=== PATIENT | male | born 1940 | race African-American/Black ===

== ENCOUNTER 2024-12-07 12:39 | Inpatient (IN) | payer OTHER ==
[~2024-12-07] VITALS: Ht 167.6 cm; Wt 113.9 kg
[2024-12-07 13:10] LABS: PLATELET COUNT (AUTO) 242 K/uL (152-348); RED BLOOD CELL COUNT(AUTO) 4.63 MIL/uL (4.06-5.63); RED CELL DISTRIBUTION WIDTH 16.0 % (12.1-16.2); WHITE BLOOD COUNT (AUTO) 8.2 K/uL (3.6-10.2)
[2024-12-07 13:20] LABS: CREATININE 2.5 mg/dL (0.6-1.3); SODIUM SERUM 143 mmol/L (136-145); UREA NITROGEN, BLOOD 33 mg/dL (7-18)
[2024-12-07] MEDS ORDERED: PROPOFOL 100 ML ONE ×3 (13:30→21:18)
[2024-12-07 13:31] LABS: LACTIC ACID 3.9 mmol/L (0.4-2.0)
[2024-12-07] MEDS: PROPOFOL 1,000 MG/100 ML BOTTLE IV ONE (13:32)
[2024-12-07] MEDS: PROPOFOL 100 ML IV PRN ×2 (13:33→18:21)
[2024-12-07 13:53] LABS: ABG BASE EXCESS -8.2 mmol/L (-2.0-3.0); ABG HCO3 24.6 mmol/L (21.0-28.0); ABG PCO2 90.2 mmHg (35.0-48.0); ABG PH 7.054 (7.350-7.450); ABG PO2 102.5 mmHg (83.0-108.0); ABG TOTAL HEMOGLOBIN 15.2 G/dL (13.5-17.5); AaDO2 94.4 mmHg; FIO2 100.0 %; PEEP,BG 5.0 cmH20; SET RATE, BG 20.0; VT, ABG 450 mL
[2024-12-07 15:22] LABS: ABG BASE EXCESS -5.2 mmol/L (-2.0-3.0); ABG HCO3 22.4 mmol/L (21.0-28.0); ABG PCO2 51.9 mmHg (35.0-48.0); ABG PH 7.253 (7.350-7.450); ABG PO2 195.5 mmHg (83.0-108.0); ABG SITE LEFT RADIAL; ABG TOTAL HEMOGLOBIN 14.2 G/dL (13.5-17.5); AaDO2 99.1 mmHg; FIO2 100.0 %; PEEP,BG 5.0 cmH20; SET RATE, BG 20.0; VT, ABG 450 mL
[2024-12-07] MEDS: IV NORMAL SALINE 1000 ML BAG IV ONE (16:42)
[2024-12-07] MEDS ORDERED: REMEDY ESSENTIAL ZINC PASTE 113 GM TP PRN (17:15)
[2024-12-07] MEDS ORDERED: PIPERACILLIN SODIUM/TAZOBACTAM 3.375 G in IV DEXTROSE 5% 50 ML IV SCH (17:15)
[2024-12-07] MEDS ORDERED: ALBUTEROL SULFATE 2.5 MG/3 ML NEBU ONE ×2 (19:27→23:25)
[2024-12-07] MEDS ORDERED: IPRATROPIUM BROMIDE 0.5 MG/2.5 ML NEBU ONE ×2 (19:28→23:26)
[2024-12-07] MEDS ORDERED: FUROSEMIDE 40 MG/4 ML VIAL IV ONE (19:45)
[2024-12-07] MEDS ORDERED: NOREPINEPHRINE 8MG/NS 250ML 0 ML IV ONE (19:51)
[2024-12-07] MEDS: ENOXAPARIN SODIUM 40 MG/0.4 ML DISP.SYRIN SQ SCH (21:00)
[2024-12-07] MEDS: IPRATROPIUM BROMIDE 0.5 MG/2.5 ML NEBU NEB SCH (21:13)
[2024-12-07] MEDS: ALBUTEROL SULFATE 2.5 MG/3 ML NEBU NEB SCH (21:13)
[2024-12-07] MEDS: PIPERACILLIN SODIUM/TAZOBACTAM 3.375 G in IV DEXTROSE 5% 100 ML IV SCH (22:31)
[2024-12-08] VITALS (53 sets, daily range): BP systolic 98–177; BP diastolic 60–91; TEMP 98–98.7; O2SAT 96–99
[2024-12-08] MEDS: IV LACTATED RINGERS SOLUTION 1,000 ML IV PRN (01:17)
[2024-12-08] MEDS ORDERED: NOREPINEPHRINE 8MG/NS 250ML 250 ML IV PRN (02:00)
[2024-12-08] MEDS ORDERED: PROPOFOL 100 ML ONE ×2 (02:24→08:58)
[2024-12-08] MEDS ORDERED: ALBUTEROL SULFATE 2.5 MG/3 ML NEBU ONE (04:12)
[2024-12-08] MEDS ORDERED: IPRATROPIUM BROMIDE 0.5 MG/2.5 ML NEBU ONE (04:12)
[2024-12-08 05:18] LABS: PLATELET COUNT (AUTO) 174 K/uL (152-348); RED BLOOD CELL COUNT(AUTO) 4.00 MIL/uL (4.06-5.63); RED CELL DISTRIBUTION WIDTH 15.7 % (12.1-16.2); WHITE BLOOD COUNT (AUTO) 8.9 K/uL (3.6-10.2)
[2024-12-08 05:34] LABS: CREATININE 3.3 mg/dL (0.6-1.3); SODIUM SERUM 141 mmol/L (136-145); UREA NITROGEN, BLOOD 41 mg/dL (7-18)
[2024-12-08 06:26] LABS: ABG BASE EXCESS -5.5 mmol/L (-2.0-3.0); ABG HCO3 19.0 mmol/L (21.0-28.0); ABG PCO2 33.9 mmHg (35.0-48.0); ABG PH 7.366 (7.350-7.450); ABG PO2 175.5 mmHg (83.0-108.0); ABG SITE LEFT RADIAL; ABG TOTAL HEMOGLOBIN 13.0 G/dL (13.5-17.5); AaDO2 99.2 mmHg; FIO2 75.0 %; PEEP,BG 5.0 cmH20; SET RATE, BG 24.0; VT, ABG 450 mL
[2024-12-08] MEDS: IPRATROPIUM BROMIDE 0.5 MG/2.5 ML NEBU NEB SCH (08:17)
[2024-12-08] MEDS: ALBUTEROL SULFATE 2.5 MG/3 ML NEBU NEB SCH (08:17)
[2024-12-08] MEDS ORDERED: LIDOCAINE 5% PATCH TD SCH ×2 (09:00)
[2024-12-08] MEDS ORDERED: IV NS 1000 ML 1,000 ML IV PRN (09:00)
[2024-12-08] MEDS ORDERED: SODIUM ZIRCONIUM CYCLOSILICATE 10 GM POWD.PACK NG ONE (10:30)
[2024-12-08] MEDS ORDERED: ALBUTEROL SULFATE 2.5 MG/3 ML NEBU NEB SCH (11:30)
[2024-12-08] MEDS: SODIUM ZIRCONIUM CYCLOSILICATE 10 GM POWD.PACK NG ONE (14:16)
[2024-12-08 14:38] LABS: CREATININE 4.0 mg/dL (0.6-1.3); SODIUM SERUM 136 mmol/L (136-145); UREA NITROGEN, BLOOD 45 mg/dL (7-18)
[2024-12-08 16:46] LABS: PLATELET COUNT (AUTO) 161 K/uL (152-348); RED BLOOD CELL COUNT(AUTO) 3.71 MIL/uL (4.06-5.63); RED CELL DISTRIBUTION WIDTH 15.8 % (12.1-16.2); WHITE BLOOD COUNT (AUTO) 9.4 K/uL (3.6-10.2)
[2024-12-08 16:58] LABS: ASPARTATE AMINOTRANSFERASE 43 U/L (15-37); CREATININE 4.0 mg/dL (0.6-1.3); SODIUM SERUM 140 mmol/L (136-145); TOTAL PROTEIN, SERUM 5.7 g/dL (6.4-8.2); UREA NITROGEN, BLOOD 46 mg/dL (7-18)
[2024-12-08] MEDS: PIPERACILLIN SODIUM/TAZOBACTAM 3.375 G in IV DEXTROSE 5% 100 ML IV SCH (18:10)
[2024-12-08] MEDS: BUDESONIDE 0.5 MG/2 ML NEBU NEB SCH (19:30)
[2024-12-08] MEDS: ENOXAPARIN SODIUM 30 MG/0.3 ML DISP.SYRIN SUBCUT SCH (21:00)
[2024-12-08] MEDS: IV NS 1000 ML 1,000 ML IV PRN (22:00)
[2024-12-08 23:19] LABS: CREATININE 4.2 mg/dL (0.6-1.3); SODIUM SERUM 142 mmol/L (136-145); UREA NITROGEN, BLOOD 47 mg/dL (7-18)
[2024-12-09] VITALS (88 sets, daily range): BP systolic 110–208; BP diastolic 62–105; TEMP 98.1–98.9; O2SAT 91–100
[2024-12-09 05:49] LABS: ABG BASE EXCESS -7.9 mmol/L (-2.0-3.0); ABG HCO3 18.3 mmol/L (21.0-28.0); ABG PCO2 39.5 mmHg (35.0-48.0); ABG PH 7.283 (7.350-7.450); ABG PO2 100.6 mmHg (83.0-108.0); ABG SITE LEFT RADIAL; ABG TOTAL HEMOGLOBIN 12.5 G/dL (13.5-17.5); AaDO2 96.9 mmHg; FIO2 50.0 %; PEEP,BG 5.0 cmH20; SET RATE, BG 20.0; VT, ABG 450 mL
[2024-12-09 06:32] LABS: PLATELET COUNT (AUTO) 141 K/uL (152-348); RED BLOOD CELL COUNT(AUTO) 3.65 MIL/uL (4.06-5.63); RED CELL DISTRIBUTION WIDTH 16.3 % (12.1-16.2); WHITE BLOOD COUNT (AUTO) 8.5 K/uL (3.6-10.2)
[2024-12-09 07:27] LABS: ASPARTATE AMINOTRANSFERASE 33 U/L (15-37); CREATINE KINASE, TOTAL 127 U/L (39-308); CREATININE 3.9 mg/dL (0.6-1.3); SODIUM SERUM 139 mmol/L (136-145); TOTAL PROTEIN, SERUM 5.8 g/dL (6.4-8.2); UREA NITROGEN, BLOOD 46 mg/dL (7-18)
[2024-12-09] MEDS ORDERED: AMLODIPINE 5 MG TABLET PO SCH (09:00)
[2024-12-09] MEDS: SODIUM BICARBONATE 8.4% 100 MEQ in IV D5 1/2 NS 1000 ML 1,000 ML IV SCH (09:29)
[2024-12-09] MEDS: IV LACTATED RINGERS SOLUTION 1,000 ML IV SCH (14:24)
[2024-12-09] MEDS: FENTANYL CITRATE 100 MCG/2 ML AMPUL IV STA (16:17)
[2024-12-09] MEDS: FENTANYL CITRATE/PF 1,000 MCG in IV NORMAL SALINE 80 ML IV PRN (17:20)
[2024-12-09 19:57] LABS: *BILIRUBIN,URIN NEGATIVE (NEGATIVE); *BLOOD, URINE 3+ (NEGATIVE); *CLARITY,URINE CLEAR (CLEAR); *COLOR,URINE YELLOW (YELLOW); *KETONES,URINE NEGATIVE (NEGATIVE); *PROTEIN,URINE 1+ (NEGATIVE); *UROBILINOGEN,URINE 0.2 E.U./dl (NORMAL); LEUKOCYTE ESTERASE ,URINE NEGATIVE (NEGATIVE); NITRITE, URINE NEGATIVE (NEGATIVE); UGLUCOSE NEGATIVE (NEGATIVE)
[2024-12-09 20:05] LABS: *CREATININE,URINE 73.6 mg/dL (30-125); *SODIUM RNDM,URINE 17.0 mmol/L (40-220); *URINE TOTAL PROTEIN RANDOM 40.8 mg/dL (<150/24HR)
[2024-12-09 20:05] LABS: SQUAMOUS EPITHELIAL CELL,UR FEW /HPF (NONE SEEN)
[2024-12-09] MEDS: HEPARIN SODIUM,PORCINE 5,000 UNITS/ML VIAL SQ SCH (21:00)
[2024-12-10] VITALS (67 sets, daily range): BP systolic 109–171; BP diastolic 50–99; TEMP 98.5–99.5; O2SAT 91–100
[2024-12-10 04:51] LABS: PLATELET COUNT (AUTO) 128 K/uL (152-348); RED BLOOD CELL COUNT(AUTO) 3.62 MIL/uL (4.06-5.63); RED CELL DISTRIBUTION WIDTH 15.9 % (12.1-16.2); WHITE BLOOD COUNT (AUTO) 7.7 K/uL (3.6-10.2)
[2024-12-10 05:09] LABS: CREATININE 3.5 mg/dL (0.6-1.3); SODIUM SERUM 146 mmol/L (136-145); UREA NITROGEN, BLOOD 41 mg/dL (7-18)
[2024-12-10 06:02] LABS: ABG BASE EXCESS -2.3 mmol/L (-2.0-3.0); ABG HCO3 23.6 mmol/L (21.0-28.0); ABG PCO2 45.2 mmHg (35.0-48.0); ABG PH 7.336 (7.350-7.450); ABG PO2 99.6 mmHg (83.0-108.0); ABG SITE RIGHT RADIAL; ABG TOTAL HEMOGLOBIN 11.9 G/dL (13.5-17.5); AaDO2 97.1 mmHg; PEEP,BG 5.0 cmH20; SET RATE, BG 20.0; VT, ABG 450 mL
[2024-12-10] MEDS: ACETAMINOPHEN 650 MG SUPP.RECT RC PRN (18:06)
[2024-12-11] VITALS (63 sets, daily range): BP systolic 91–231; BP diastolic 52–127; TEMP 98–99.7; O2SAT 92–99
[2024-12-11 05:21] LABS: CREATININE 3.4 mg/dL (0.6-1.3); SODIUM SERUM 148 mmol/L (136-145); UREA NITROGEN, BLOOD 38 mg/dL (7-18)
[2024-12-11 05:22] LABS: PLATELET COUNT (AUTO) 123 K/uL (152-348); RED BLOOD CELL COUNT(AUTO) 3.33 MIL/uL (4.06-5.63); RED CELL DISTRIBUTION WIDTH 15.6 % (12.1-16.2); WHITE BLOOD COUNT (AUTO) 5.6 K/uL (3.6-10.2)
[2024-12-11 05:58] LABS: ABG BASE EXCESS 2.0 mmol/L (-2.0-3.0); ABG HCO3 28.7 mmol/L (21.0-28.0); ABG PCO2 54.5 mmHg (35.0-48.0); ABG PH 7.340 (7.350-7.450); ABG PO2 80.1 mmHg (83.0-108.0); ABG SITE RIGHT RADIAL; ABG TOTAL HEMOGLOBIN 12.2 G/dL (13.5-17.5); AaDO2 95.0 mmHg; FIO2 45.0 %; PEEP,BG 5.0 cmH20; SET RATE, BG 20.0; VT, ABG 450 mL
[2024-12-11] MEDS: ALBUMIN HUMAN 25% 100 ML IV ONE (14:55)
[2024-12-11] MEDS: IV D5 1/2 NS 1000 ML 1,000 ML IV PRN (19:26)
[2024-12-12] VITALS (44 sets, daily range): BP systolic 117–197; BP diastolic 53–122; TEMP 99.1–99.7; O2SAT 93–97
[2024-12-12 05:13] LABS: PLATELET COUNT (AUTO) 137 K/uL (152-348); RED BLOOD CELL COUNT(AUTO) 3.52 MIL/uL (4.06-5.63); RED CELL DISTRIBUTION WIDTH 15.2 % (12.1-16.2); WHITE BLOOD COUNT (AUTO) 5.9 K/uL (3.6-10.2)
[2024-12-12 05:27] LABS: ASPARTATE AMINOTRANSFERASE 15 U/L (15-37); CREATININE 3.0 mg/dL (0.6-1.3); SODIUM SERUM 148 mmol/L (136-145); TOTAL PROTEIN, SERUM 5.3 g/dL (6.4-8.2); UREA NITROGEN, BLOOD 36 mg/dL (7-18)
[2024-12-12 05:49] LABS: ABG BASE EXCESS 2.8 mmol/L (-2.0-3.0); ABG HCO3 31.2 mmol/L (21.0-28.0); ABG PCO2 66.9 mmHg (35.0-48.0); ABG PH 7.286 (7.350-7.450); ABG PO2 55.7 mmHg (83.0-108.0); ABG SITE LEFT RADIAL; ABG TOTAL HEMOGLOBIN 12.6 G/dL (13.5-17.5); AaDO2 84.4 mmHg; FIO2 40.0 %; PEEP,BG 0.0 cmH20
[2024-12-12 07:06] LABS: PTH, INTACT 55 pg/mL (15-65)
[2024-12-12] MEDS: IV D5W 1000ML 1,000 ML IV SCH (11:26)
[2024-12-12] MEDS: MIRALAX 17 GM POWD.PACK PO SCH (11:30)
[2024-12-12] MEDS: PRECEDEX 400 MCG/100 ML BOTTLE 100 ML IV PRN (13:39)
[2024-12-12] MEDS ORDERED: FENTANYL 50 MCG/ML SYRINGE IV PRN (17:45)
[2024-12-12] MEDS: MAGNESIUM HYDROXIDE 30 ML LIQUID UDC PO PRN (18:46)
[2024-12-12] MEDS: METOPROLOL TARTRATE 5 MG/5 ML VIAL IVP ONE (20:36)
[2024-12-12] MEDS: METOPROLOL TARTRATE 25 MG TABLET PO SCH (21:24)
[2024-12-12] MEDS ORDERED: PROPOFOL 200 MG/20 ML BOTTLE ONE (22:00)
[2024-12-12] MEDS ORDERED: ETOMIDATE 20 MG/10 ML VIAL ONE (22:00)
[2024-12-12] MEDS ORDERED: SUCCINYLCHOLINE CHLORIDE 200 MG/10 ML VIAL ONE (22:00)
[2024-12-12] MEDS: FENTANYL CITRATE 100 MCG/2 ML AMPUL IV PRN (22:23)
[2024-12-13] VITALS (67 sets, daily range): BP systolic 101–246; BP diastolic 57–131; TEMP 97.3–99.2; O2SAT 83–100
[2024-12-13] MEDS: PROPOFOL 100 ML IV PRN (00:54)
[2024-12-13 05:17] LABS: PLATELET COUNT (AUTO) 137 K/uL (152-348); RED BLOOD CELL COUNT(AUTO) 3.41 MIL/uL (4.06-5.63); RED CELL DISTRIBUTION WIDTH 15.4 % (12.1-16.2); WHITE BLOOD COUNT (AUTO) 5.8 K/uL (3.6-10.2)
[2024-12-13 05:32] LABS: CREATININE 2.9 mg/dL (0.6-1.3); SODIUM SERUM 145 mmol/L (136-145); UREA NITROGEN, BLOOD 38 mg/dL (7-18)
[2024-12-13 06:23] LABS: ABG BASE EXCESS 3.9 mmol/L (-2.0-3.0); ABG HCO3 29.1 mmol/L (21.0-28.0); ABG PCO2 46.4 mmHg (35.0-48.0); ABG PH 7.415 (7.350-7.450); ABG PO2 70.1 mmHg (83.0-108.0); ABG SITE RIGHT RADIAL; ABG TOTAL HEMOGLOBIN 12.0 G/dL (13.5-17.5); AaDO2 94.2 mmHg; FIO2 40.0 %; PEEP,BG 5.0 cmH20; SET RATE, BG 20.0; VT, ABG 450 mL
[2024-12-13 10:32] LABS: ABG BASE EXCESS 2.4 mmol/L (-2.0-3.0); ABG HCO3 33.9 mmol/L (21.0-28.0); ABG PCO2 93.9 mmHg (35.0-48.0); ABG PH 7.176 (7.350-7.450); ABG PO2 56.5 mmHg (83.0-108.0); ABG SITE LEFT RADIAL; ABG TOTAL HEMOGLOBIN 14.0 G/dL (13.5-17.5); AaDO2 79.8 mmHg; FIO2 40.0 %; PEEP,BG 0.0 cmH20
[2024-12-13] MEDS: NEPRO 1000 ML NG PRN (17:12)
[2024-12-14] VITALS (74 sets, daily range): BP systolic 111–237; BP diastolic 51–136; TEMP 97.5–99.5; O2SAT 91–100
[2024-12-14 05:45] LABS: PLATELET COUNT (AUTO) 149 K/uL (152-348); RED BLOOD CELL COUNT(AUTO) 3.47 MIL/uL (4.06-5.63); RED CELL DISTRIBUTION WIDTH 15.1 % (12.1-16.2); WHITE BLOOD COUNT (AUTO) 6.5 K/uL (3.6-10.2)
[2024-12-14 05:55] LABS: CREATININE 2.9 mg/dL (0.6-1.3); SODIUM SERUM 140 mmol/L (136-145); UREA NITROGEN, BLOOD 45 mg/dL (7-18)
[2024-12-14 06:43] LABS: ABG BASE EXCESS 2.6 mmol/L (-2.0-3.0); ABG HCO3 31.1 mmol/L (21.0-28.0); ABG PCO2 66.9 mmHg (35.0-48.0); ABG PH 7.285 (7.350-7.450); ABG PO2 71.6 mmHg (83.0-108.0); ABG SITE RIGHT RADIAL; ABG TOTAL HEMOGLOBIN 13.4 G/dL (13.5-17.5); AaDO2 92.0 mmHg; FIO2 30.0 %; PEEP,BG 3.0 cmH20
[2024-12-14 08:59] LABS: ASPARTATE AMINOTRANSFERASE 20.0 U/L (15-37); TOTAL PROTEIN, SERUM 5.5 g/dL (6.4-8.2)
[2024-12-15] VITALS (48 sets, daily range): BP systolic 94–244; BP diastolic 53–111; TEMP 97.7–103.3; O2SAT 88–100
[2024-12-15 05:23] LABS: PLATELET COUNT (AUTO) 173 K/uL (152-348); RED BLOOD CELL COUNT(AUTO) 3.30 MIL/uL (4.06-5.63); RED CELL DISTRIBUTION WIDTH 14.9 % (12.1-16.2); WHITE BLOOD COUNT (AUTO) 7.9 K/uL (3.6-10.2)
[2024-12-15 05:26] LABS: CREATININE 3.1 mg/dL (0.6-1.3); SODIUM SERUM 138 mmol/L (136-145); UREA NITROGEN, BLOOD 50 mg/dL (7-18)
[2024-12-15 06:03] LABS: ABG BASE EXCESS 2.1 mmol/L (-2.0-3.0); ABG HCO3 30.7 mmol/L (21.0-28.0); ABG PCO2 67.4 mmHg (35.0-48.0); ABG PH 7.276 (7.350-7.450); ABG PO2 55.2 mmHg (83.0-108.0); ABG SITE LEFT RADIAL; ABG TOTAL HEMOGLOBIN 13.0 G/dL (13.5-17.5); AaDO2 83.7 mmHg; FIO2 30.0 %; PEEP,BG 3.0 cmH20
[2024-12-16] VITALS (33 sets, daily range): BP systolic 138–225; BP diastolic 68–125; TEMP 98.4–99.6; O2SAT 89–100
[2024-12-16 05:18] LABS: PLATELET COUNT (AUTO) 214 K/uL (152-348); RED BLOOD CELL COUNT(AUTO) 3.71 MIL/uL (4.06-5.63); RED CELL DISTRIBUTION WIDTH 14.7 % (12.1-16.2); WHITE BLOOD COUNT (AUTO) 8.7 K/uL (3.6-10.2)
[2024-12-16 05:29] LABS: CREATININE 3.0 mg/dL (0.6-1.3); SODIUM SERUM 137 mmol/L (136-145); UREA NITROGEN, BLOOD 57 mg/dL (7-18)
[2024-12-16 09:36] LABS: ABG BASE EXCESS 1.1 mmol/L (-2.0-3.0); ABG HCO3 29.8 mmol/L (21.0-28.0); ABG PCO2 67.1 mmHg (35.0-48.0); ABG PH 7.266 (7.350-7.450); ABG PO2 42.6 mmHg (83.0-108.0); ABG SITE LEFT RADIAL; ABG TOTAL HEMOGLOBIN 14.0 G/dL (13.5-17.5); AaDO2 70.0 mmHg; FIO2 30.0 %; PEEP,BG 3.0 cmH20
[2024-12-16] MEDS: ACETAMINOPHEN 325 MG TABLET PO PRN (16:06)
[2024-12-17] VITALS (55 sets, daily range): BP systolic 68–208; BP diastolic 42–141; TEMP 97.2–99; O2SAT 88–99
[2024-12-17 10:34] LABS: ABG BASE EXCESS -2.4 mmol/L (-2.0-3.0); ABG HCO3 29.0 mmol/L (21.0-28.0); ABG PCO2 85.8 mmHg (35.0-48.0); ABG PH 7.147 (7.350-7.450); ABG PO2 58.8 mmHg (83.0-108.0); ABG SITE LEFT RADIAL; ABG TOTAL HEMOGLOBIN 14.8 G/dL (13.5-17.5); AaDO2 80.8 mmHg; FIO2 35.0 %; PEEP,BG 0.0 cmH20
[2024-12-17] MEDS: IV D5 1/2 NS 1000 ML 1,000 ML IV PRN (14:00)
[2024-12-17 14:33] LABS: PLATELET COUNT (AUTO) 258 K/uL (152-348); RED BLOOD CELL COUNT(AUTO) 3.37 MIL/uL (4.06-5.63); RED CELL DISTRIBUTION WIDTH 14.5 % (12.1-16.2); WHITE BLOOD COUNT (AUTO) 7.9 K/uL (3.6-10.2)
[2024-12-17 14:45] LABS: ASPARTATE AMINOTRANSFERASE 52 U/L (15-37); CREATININE 3.0 mg/dL (0.6-1.3); SODIUM SERUM 138 mmol/L (136-145); TOTAL PROTEIN, SERUM 5.5 g/dL (6.4-8.2); UREA NITROGEN, BLOOD 76 mg/dL (7-18)
[2024-12-17] MEDS ORDERED: NOREPINEPHRINE 8MG/NS 250ML 250 ML IV PRN (15:45)
[2024-12-17] MEDS: PRECEDEX 400 MCG/100 ML BOTTLE 100 ML IV PRN (16:07)
[2024-12-17 16:54] LABS: *BILIRUBIN,URIN NEGATIVE (NEGATIVE); *BLOOD, URINE 3+ (NEGATIVE); *COLOR,URINE YELLOW (YELLOW); *KETONES,URINE NEGATIVE (NEGATIVE); *PROTEIN,URINE 1+ (NEGATIVE); *UROBILINOGEN,URINE 0.2 E.U./dl (NORMAL); LEUKOCYTE ESTERASE ,URINE NEGATIVE (NEGATIVE); NITRITE, URINE NEGATIVE (NEGATIVE); UGLUCOSE NEGATIVE (NEGATIVE)
[2024-12-17 16:57] LABS: *CLARITY,URINE HAZY (CLEAR)
[2024-12-17 17:17] LABS: SQUAMOUS EPITHELIAL CELL,UR FEW /HPF (NONE SEEN); URINE AMORPHOUS URATE MODERATE /HPF
[2024-12-18] VITALS (73 sets, daily range): BP systolic 110–255; BP diastolic 56–161; TEMP 97.2–98.1; O2SAT 88–100
[2024-12-18 05:29] LABS: PLATELET COUNT (AUTO) 321 K/uL (152-348); RED BLOOD CELL COUNT(AUTO) 3.61 MIL/uL (4.06-5.63); RED CELL DISTRIBUTION WIDTH 14.7 % (12.1-16.2); WHITE BLOOD COUNT (AUTO) 8.8 K/uL (3.6-10.2)
[2024-12-18 05:41] LABS: ASPARTATE AMINOTRANSFERASE 24 U/L (15-37); CREATININE 3.0 mg/dL (0.6-1.3); SODIUM SERUM 136 mmol/L (136-145); TOTAL PROTEIN, SERUM 6.0 g/dL (6.4-8.2)
[2024-12-18 05:43] LABS: UREA NITROGEN, BLOOD 86 mg/dL (7-18)
[2024-12-18 10:37] LABS: ABG BASE EXCESS 0.1 mmol/L (-2.0-3.0); ABG HCO3 26.4 mmol/L (21.0-28.0); ABG PCO2 49.7 mmHg (35.0-48.0); ABG PH 7.343 (7.350-7.450); ABG PO2 76.8 mmHg (83.0-108.0); ABG TOTAL HEMOGLOBIN 12.5 G/dL (13.5-17.5); AaDO2 94.5 mmHg; FIO2 35.0 %; PEEP,BG 3.0 cmH20
[2024-12-18] MEDS: METOPROLOL TARTRATE 5 MG/5 ML VIAL IVP PRN (11:55)
[2024-12-18] MEDS ORDERED: PIPERACILLIN SODIUM/TAZOBACTAM 3.375 G in IV DEXTROSE 5% 50 ML IV SCH (12:45)
[2024-12-18 12:49] LABS: ABG BASE EXCESS -3.6 mmol/L (-2.0-3.0); ABG HCO3 30.2 mmol/L (21.0-28.0); ABG PCO2 112.2 mmHg (35.0-48.0); ABG PH 7.048 (7.350-7.450); ABG PO2 109.4 mmHg (83.0-108.0); ABG SITE LEFT RADIAL; ABG TOTAL HEMOGLOBIN 14.4 G/dL (13.5-17.5); AaDO2 95.1 mmHg; FIO2 52.0 %
[2024-12-18] MEDS: PRECEDEX 400 MCG/100 ML BOTTLE 100 ML IV PRN (12:52)
[2024-12-18] MEDS: PIPERACILLIN SODIUM/TAZOBACTAM 3.375 G in IV DEXTROSE 5% 100 ML IV SCH (13:10)
[2024-12-18] MEDS ORDERED: PROPOFOL 200 MG/20 ML BOTTLE ONE (14:00)
[2024-12-18 15:25] LABS: ABG BASE EXCESS -0.8 mmol/L (-2.0-3.0); ABG HCO3 25.3 mmol/L (21.0-28.0); ABG PCO2 47.9 mmHg (35.0-48.0); ABG PH 7.341 (7.350-7.450); ABG PO2 75.5 mmHg (83.0-108.0); ABG SITE LEFT RADIAL; ABG TOTAL HEMOGLOBIN 11.9 G/dL (13.5-17.5); AaDO2 94.3 mmHg; FIO2 60.0 %; PEEP,BG 5.0 cmH20; SET RATE, BG 20.0; VT, ABG 450 mL
[2024-12-19] VITALS (48 sets, daily range): BP systolic 132–196; BP diastolic 57–144; TEMP 97.7–98.7; O2SAT 93–100
[2024-12-19 08:42] LABS: ABG BASE EXCESS 0.2 mmol/L (-2.0-3.0); ABG HCO3 25.7 mmol/L (21.0-28.0); ABG PCO2 44.6 mmHg (35.0-48.0); ABG PH 7.379 (7.350-7.450); ABG PO2 77.7 mmHg (83.0-108.0); ABG SITE LEFT RADIAL; ABG TOTAL HEMOGLOBIN 18.8 G/dL (13.5-17.5); AaDO2 95.2 mmHg; FIO2 40.0 %; PEEP,BG 5.0 cmH20; SET RATE, BG 20.0; VT, ABG 450 mL
[2024-12-19 08:43] LABS: PLATELET COUNT (AUTO) 327 K/uL (152-348); RED BLOOD CELL COUNT(AUTO) 3.52 MIL/uL (4.06-5.63); RED CELL DISTRIBUTION WIDTH 14.6 % (12.1-16.2); WHITE BLOOD COUNT (AUTO) 9.9 K/uL (3.6-10.2)
[2024-12-19 09:02] LABS: ASPARTATE AMINOTRANSFERASE 20 U/L (15-37); CREATININE 2.9 mg/dL (0.6-1.3); SODIUM SERUM 140 mmol/L (136-145); TOTAL PROTEIN, SERUM 6.0 g/dL (6.4-8.2)
[2024-12-19 09:07] LABS: UREA NITROGEN, BLOOD 103 mg/dL (7-18)
[2024-12-20] VITALS (42 sets, daily range): BP systolic 129–229; BP diastolic 34–194; TEMP 97.7–98.9; O2SAT 94–100
[2024-12-20 05:07] LABS: PLATELET COUNT (AUTO) 328 K/uL (152-348); RED BLOOD CELL COUNT(AUTO) 3.47 MIL/uL (4.06-5.63); RED CELL DISTRIBUTION WIDTH 14.2 % (12.1-16.2); WHITE BLOOD COUNT (AUTO) 9.5 K/uL (3.6-10.2)
[2024-12-20 06:15] LABS: CREATININE 2.7 mg/dL (0.6-1.3); SODIUM SERUM 141 mmol/L (136-145)
[2024-12-20 06:18] LABS: UREA NITROGEN, BLOOD 100 mg/dL (7-18)
[2024-12-20 06:32] LABS: ABG BASE EXCESS 0.2 mmol/L (-2.0-3.0); ABG HCO3 25.0 mmol/L (21.0-28.0); ABG PCO2 41.2 mmHg (35.0-48.0); ABG PH 7.401 (7.350-7.450); ABG PO2 84.8 mmHg (83.0-108.0); ABG SITE LEFT RADIAL; ABG TOTAL HEMOGLOBIN 12.1 G/dL (13.5-17.5); AaDO2 96.4 mmHg; FIO2 40.0 %; PEEP,BG 5.0 cmH20; SET RATE, BG 20.0; VT, ABG 450 mL
[2024-12-20] MEDS: OLANZAPINE 10 MG VIAL IM ONE (12:02)
[2024-12-20] MEDS: FENTANYL CITRATE 100 MCG/2 ML AMPUL IV ONE (13:31)
[2024-12-20] MEDS: VECURONIUM BROMIDE 10 MG VIAL IV ONE (13:32)
[2024-12-20] MEDS: MIDAZOLAM HCL 2 MG/2 ML VIAL IV ONE (14:05)
[2024-12-20] MEDS: LABETALOL HCL 100 MG/20 ML VIAL IV ONE (15:23)
[2024-12-20] MEDS ORDERED: BISACODYL 10 MG SUPP.RECT RC ONE (19:45)
[2024-12-20] MEDS: BISACODYL 10 MG SUPP.RECT RC ONE (22:06)
[2024-12-21] VITALS (41 sets, daily range): BP systolic 123–205; BP diastolic 53–120; TEMP 96.8–98.2; O2SAT 95–99
[2024-12-21 05:08] LABS: PLATELET COUNT (AUTO) 368 K/uL (152-348); RED BLOOD CELL COUNT(AUTO) 3.86 MIL/uL (4.06-5.63); RED CELL DISTRIBUTION WIDTH 14.5 % (12.1-16.2); WHITE BLOOD COUNT (AUTO) 12.0 K/uL (3.6-10.2)
[2024-12-21 05:31] LABS: CREATININE 2.6 mg/dL (0.6-1.3); SODIUM SERUM 144 mmol/L (136-145)
[2024-12-21 05:33] LABS: UREA NITROGEN, BLOOD 99 mg/dL (7-18)
[2024-12-21 05:45] LABS: ABG BASE EXCESS -1.0 mmol/L (-2.0-3.0); ABG HCO3 23.9 mmol/L (21.0-28.0); ABG PCO2 41.0 mmHg (35.0-48.0); ABG PH 7.384 (7.350-7.450); ABG PO2 83.0 mmHg (83.0-108.0); ABG SITE LEFT RADIAL; ABG TOTAL HEMOGLOBIN 8.1 G/dL (13.5-17.5); AaDO2 96.1 mmHg; FIO2 40.0 %; PEEP,BG 5.0 cmH20; SET RATE, BG 20.0; VT, ABG 450 mL
[2024-12-21] MEDS: LABETALOL HCL 100 MG/20 ML VIAL IV PRN (13:04)
[2024-12-21] MEDS ORDERED: PROPOFOL 200 MG/20 ML BOTTLE ONE (18:38)
[2024-12-21] MEDS ORDERED: LIDOCAINE-MPF 2% 5 ML VIAL ONE (18:38)
[2024-12-21] MEDS ORDERED: ETOMIDATE 20 MG/10 ML VIAL ONE (18:38)
[2024-12-22] VITALS (29 sets, daily range): BP systolic 130–196; BP diastolic 52–150; TEMP 96.7–99; O2SAT 95–100
[2024-12-22 05:06] LABS: PLATELET COUNT (AUTO) 356 K/uL (152-348); RED BLOOD CELL COUNT(AUTO) 3.59 MIL/uL (4.06-5.63); RED CELL DISTRIBUTION WIDTH 14.6 % (12.1-16.2); WHITE BLOOD COUNT (AUTO) 11.9 K/uL (3.6-10.2)
[2024-12-22 05:20] LABS: CREATININE 2.2 mg/dL (0.6-1.3); SODIUM SERUM 145 mmol/L (136-145)
[2024-12-22 05:25] LABS: UREA NITROGEN, BLOOD 91 mg/dL (7-18)
[2024-12-22] MEDS: QUETIAPINE FUMARATE 25 MG TABLET GT SCH (07:35)
[2024-12-22] MEDS: LABETALOL HCL 100 MG TABLET GT SCH (09:44)
[2024-12-22] MEDS: PIPERACILLIN SODIUM/TAZOBACTAM 3.375 G in IV DEXTROSE 5% 100 ML IV SCH (09:44)
[2024-12-22 10:11] LABS: A/G RATIO 1.1 (0.7-1.7); BETA GLOBULIN 1.0 g/dL (0.7-1.3); GLOBULIN, TOTAL 2.6 g/dL (2.2-3.9); M-SPIKE Not Observed g/dL (Not Observed); PROTEIN, TOTAL 5.4 g/dL (6.0-8.5)
[2024-12-22 11:29] LABS: ABG BASE EXCESS -1.1 mmol/L (-2.0-3.0); ABG HCO3 21.7 mmol/L (21.0-28.0); ABG PCO2 30.7 mmHg (35.0-48.0); ABG PH 7.468 (7.350-7.450); ABG PO2 98.7 mmHg (83.0-108.0); ABG SITE LEFT RADIAL; ABG TOTAL HEMOGLOBIN 12.4 G/dL (13.5-17.5); AaDO2 97.9 mmHg; FIO2 40.0 %; PEEP,BG 5.0 cmH20; SET RATE, BG 20.0; VT, ABG 450 mL
[2024-12-22] MEDS: BUDESONIDE 0.5 MG/2 ML NEBU NEB SCH (20:10)
[2024-12-23] VITALS (43 sets, daily range): BP systolic 122–239; BP diastolic 60–159; TEMP 97.1–99.5; O2SAT 91–100
[2024-12-23 05:05] LABS: PLATELET COUNT (AUTO) 376 K/uL (152-348); RED BLOOD CELL COUNT(AUTO) 3.35 MIL/uL (4.06-5.63); RED CELL DISTRIBUTION WIDTH 14.8 % (12.1-16.2); WHITE BLOOD COUNT (AUTO) 9.0 K/uL (3.6-10.2)
[2024-12-23 05:20] LABS: ASPARTATE AMINOTRANSFERASE 17 U/L (15-37); CREATININE 2.4 mg/dL (0.6-1.3); SODIUM SERUM 144 mmol/L (136-145); TOTAL PROTEIN, SERUM 5.8 g/dL (6.4-8.2)
[2024-12-23 05:24] LABS: UREA NITROGEN, BLOOD 89 mg/dL (7-18)
[2024-12-23 05:35] LABS: IRON, SERUM 26 ug/dL (50-175)
[2024-12-23] MEDS: PANTOPRAZOLE ORAL SUSPENSION 40 MG SUSPDR.PKT GT SCH (08:23)
[2024-12-23] MEDS: LABETALOL HCL 200 MG TABLET PO SCH (08:33)
[2024-12-23] MEDS ORDERED: LABETALOL HCL 100 MG TABLET GT SCH (09:00)
[2024-12-23 14:39] LABS: ABG BASE EXCESS -4.4 mmol/L (-2.0-3.0); ABG HCO3 22.0 mmol/L (21.0-28.0); ABG PCO2 45.4 mmHg (35.0-48.0); ABG PH 7.303 (7.350-7.450); ABG PO2 85.5 mmHg (83.0-108.0); ABG TOTAL HEMOGLOBIN 12.7 G/dL (13.5-17.5); AaDO2 95.5 mmHg; FIO2 40.0 %; PEEP,BG 5.0 cmH20
[2024-12-23] MEDS ORDERED: METOPROLOL TARTRATE 5 MG/5 ML VIAL IVP PRN (17:00)
[2024-12-23] MEDS: QUETIAPINE FUMARATE 25 MG TABLET PO SCH (21:08)
[2024-12-24] VITALS (52 sets, daily range): BP systolic 109–214; BP diastolic 56–122; TEMP 97.6–99.5; O2SAT 94–99
[2024-12-24 04:44] LABS: PLATELET COUNT (AUTO) 416 K/uL (152-348); RED BLOOD CELL COUNT(AUTO) 3.51 MIL/uL (4.06-5.63); RED CELL DISTRIBUTION WIDTH 15.1 % (12.1-16.2); WHITE BLOOD COUNT (AUTO) 11.3 K/uL (3.6-10.2)
[2024-12-24 04:56] LABS: CREATININE 2.5 mg/dL (0.6-1.3); SODIUM SERUM 144 mmol/L (136-145)
[2024-12-24 04:58] LABS: UREA NITROGEN, BLOOD 94 mg/dL (7-18)
[2024-12-25] VITALS (43 sets, daily range): BP systolic 97–223; BP diastolic 65–112; TEMP 97.4–99.4; O2SAT 91–99
[2024-12-25 05:22] LABS: PLATELET COUNT (AUTO) 361 K/uL (152-348); RED BLOOD CELL COUNT(AUTO) 3.62 MIL/uL (4.06-5.63); RED CELL DISTRIBUTION WIDTH 16.7 % (12.1-16.2); WHITE BLOOD COUNT (AUTO) 9.5 K/uL (3.6-10.2)
[2024-12-25 05:29] LABS: CREATININE 2.3 mg/dL (0.6-1.3); SODIUM SERUM 144 mmol/L (136-145)
[2024-12-25 05:35] LABS: UREA NITROGEN, BLOOD 91 mg/dL (7-18)
[2024-12-25 05:50] LABS: EOSINOPHILS % (MANUAL) 1 % (0-8); LYMPHOCYTES % (MANUAL) 8 % (20-40); MONOCYTES % (MANUAL) 6 % (2-10); NEUTROPHILS % (MANUAL) 85 % (42-75)
[2024-12-25 05:51] LABS: PLATELET ESTIMATE SLIGHT INCREASED
[2024-12-25 08:20] LABS: *BILIRUBIN,URIN NEGATIVE (NEGATIVE); *BLOOD, URINE NEGATIVE (NEGATIVE); *COLOR,URINE YELLOW (YELLOW); *KETONES,URINE NEGATIVE (NEGATIVE); *PROTEIN,URINE 2+ (NEGATIVE); *UROBILINOGEN,URINE 0.2 E.U./dl (NORMAL); LEUKOCYTE ESTERASE ,URINE NEGATIVE (NEGATIVE); NITRITE, URINE NEGATIVE (NEGATIVE); UGLUCOSE NEGATIVE (NEGATIVE)
[2024-12-25 08:29] LABS: *CLARITY,URINE SLIGHTLY HAZY (CLEAR)
[2024-12-25 08:30] LABS: URINE AMORPHOUS URATE FEW /HPF
[2024-12-25] MEDS: FLEET ENEMA 133 ML BOTTLE RC ONE (15:41)
[2024-12-25] MEDS ORDERED: QUETIAPINE FUMARATE 25 MG TABLET GT PRN (20:15)
[2024-12-26] VITALS (9 sets, daily range): BP systolic 134–217; BP diastolic 69–95; TEMP 97.9–99.6; O2SAT 90–97
[2024-12-26 06:55] LABS: CREATININE 2.4 mg/dL (0.6-1.3); SODIUM SERUM 148 mmol/L (136-145)
[2024-12-26 07:26] LABS: UREA NITROGEN, BLOOD 89 mg/dL (7-18)
[2024-12-26] MEDS ORDERED: SODIUM CHLORIDE IV ONE (12:30)
[2024-12-26 12:57] LABS: IRON, SERUM 22 ug/dL (50-175)
[2024-12-26] MEDS ORDERED: IV 1/2NS 1000 ML 500 ML IV ONE (13:00)
[2024-12-26] MEDS: IV 1/2NS 1000 ML 500 ML IV ONE (13:15)
[2024-12-26] MEDS: LABETALOL HCL 200 MG TABLET GT SCH (13:19)
[2024-12-26 13:28] LABS: PLATELET COUNT (AUTO) 359 K/uL (152-348); RED BLOOD CELL COUNT(AUTO) 3.64 MIL/uL (4.06-5.63); RED CELL DISTRIBUTION WIDTH 15.7 % (12.1-16.2); WHITE BLOOD COUNT (AUTO) 12.4 K/uL (3.6-10.2)
[2024-12-26] MEDS: BUMETANIDE 1 MG/4 ML VIAL IV ONE (22:27)
[2024-12-27] VITALS (38 sets, daily range): BP systolic 72–218; BP diastolic 47–122; TEMP 97.7–100.6; O2SAT 76–100
[2024-12-27] MEDS: ONDANSETRON 4 MG/2 ML VIAL IV PRN (01:25)
[2024-12-27] MEDS ORDERED: METRONIDAZOLE 500 MG/NS 100ML 100 ML IV ONE (03:41)
[2024-12-27] MEDS: METRONIDAZOLE 500 MG/NS 100ML 500 MG in PREMIXED 1 EACH IV SCH (03:52)
[2024-12-27 05:27] LABS: PLATELET COUNT (AUTO) 320 K/uL (152-348); RED BLOOD CELL COUNT(AUTO) 3.60 MIL/uL (4.06-5.63); RED CELL DISTRIBUTION WIDTH 15.5 % (12.1-16.2); WHITE BLOOD COUNT (AUTO) 17.0 K/uL (3.6-10.2)
[2024-12-27 05:37] LABS: CREATININE 2.5 mg/dL (0.6-1.3); SODIUM SERUM 143 mmol/L (136-145)
[2024-12-27 05:41] LABS: UREA NITROGEN, BLOOD 85 mg/dL (7-18)
[2024-12-27 07:47] LABS: ABG BASE EXCESS -1.7 mmol/L (-2.0-3.0); ABG HCO3 26.4 mmol/L (21.0-28.0); ABG PCO2 60.5 mmHg (35.0-48.0); ABG PH 7.257 (7.350-7.450); ABG PO2 78.2 mmHg (83.0-108.0); ABG TOTAL HEMOGLOBIN 12.2 G/dL (13.5-17.5); AaDO2 93.4 mmHg; FIO2 100.0 %; SET RATE, BG 16.0; VT, ABG 450 mL
[2024-12-27] MEDS ORDERED: EPINEPHRINE 1:10,000 1 MG/10 ML DISP.SYRIN ONE (11:15)
[2024-12-27] MEDS ORDERED: SODIUM BICARBONATE 8.4% 50 MEQ/50 ML DISP.SYRIN IV ONE (11:15)
[2024-12-27] MEDS ORDERED: DEXTROSE 25% 10 ML DISP.SYRIN ONE (11:15)
[2024-12-27] MEDS: SULFAMETHOXAZOL/TRIMETHOPRI IV 10 ML in IV DEXTROSE 5% 250 ML IV SCH (14:34)
[2024-12-27] MEDS ORDERED: DIATR MEGLU/DIATRIZOATE SODIUM 30 ML BOTTLE ONE (18:59)
[2024-12-27 20:06] LABS: ASPARTATE AMINOTRANSFERASE 13 U/L (15-37); CREATININE 3.2 mg/dL (0.6-1.3); SODIUM SERUM 146 mmol/L (136-145); TOTAL PROTEIN, SERUM 5.6 g/dL (6.4-8.2)
[2024-12-27 20:07] LABS: UREA NITROGEN, BLOOD 97 mg/dL (7-18)
[2024-12-27] MEDS: PANTOPRAZOLE SODIUM 40 MG VIAL IV SCH (20:26)
[2024-12-27] MEDS ORDERED: PANTOPRAZOLE SODIUM 40 MG VIAL IV SCH (21:00)
[2024-12-28] VITALS (33 sets, daily range): BP systolic 83–200; BP diastolic 52–170; TEMP 98.2–98.8; O2SAT 94–99
[2024-12-28] MEDS ORDERED: LIDOCAINE HCL 1% 20 ML VIAL IJ PRN
[2024-12-28] MEDS ORDERED: LIDOCAINE 1%-EPI 1:100,000 20 ML VIAL ONE (00:07)
[2024-12-28 05:11] LABS: PLATELET COUNT (AUTO) 263 K/uL (152-348); RED BLOOD CELL COUNT(AUTO) 3.17 MIL/uL (4.06-5.63); RED CELL DISTRIBUTION WIDTH 15.3 % (12.1-16.2); WHITE BLOOD COUNT (AUTO) 20.5 K/uL (3.6-10.2)
[2024-12-28 05:23] LABS: CREATININE 3.7 mg/dL (0.6-1.3); SODIUM SERUM 142 mmol/L (136-145)
[2024-12-28 05:25] LABS: UREA NITROGEN, BLOOD 103 mg/dL (7-18)
[2024-12-28 08:47] LABS: ABG BASE EXCESS -1.4 mmol/L (-2.0-3.0); ABG HCO3 24.5 mmol/L (21.0-28.0); ABG PCO2 46.2 mmHg (35.0-48.0); ABG PH 7.342 (7.350-7.450); ABG PO2 98.7 mmHg (83.0-108.0); ABG TOTAL HEMOGLOBIN 11.2 G/dL (13.5-17.5); AaDO2 97.1 mmHg; FIO2 100.0 %; PEEP,BG 5.0 cmH20; SET RATE, BG 22.0; VT, ABG 450 mL
[2024-12-28] MEDS: IV NS 1000 ML 1,000 ML IV PRN (09:22)
[2024-12-28 10:16] LABS: *CREATININE,URINE 100.4 mg/dL (30-125); *SODIUM RNDM,URINE 6.0 mmol/L (40-220); *URINE TOTAL PROTEIN RANDOM 80.1 mg/dL (<150/24HR)
[2024-12-28 10:18] LABS: *BILIRUBIN,URIN NEGATIVE (NEGATIVE); *BLOOD, URINE NEGATIVE (NEGATIVE); *COLOR,URINE YELLOW (YELLOW); *KETONES,URINE NEGATIVE (NEGATIVE); *PROTEIN,URINE 2+ (NEGATIVE); *UROBILINOGEN,URINE 0.2 E.U./dl (NORMAL); LEUKOCYTE ESTERASE ,URINE NEGATIVE (NEGATIVE); NITRITE, URINE NEGATIVE (NEGATIVE); UGLUCOSE NEGATIVE (NEGATIVE)
[2024-12-28 10:59] LABS: *CLARITY,URINE SLIGHTLY HAZY (CLEAR)
[2024-12-28 11:00] LABS: URINE AMORPHOUS URATE FEW /HPF
[2024-12-28 15:07] LABS: CREATININE 3.9 mg/dL (0.6-1.3); SODIUM SERUM 141 mmol/L (136-145)
[2024-12-28 15:13] LABS: UREA NITROGEN, BLOOD 104 mg/dL (7-18)
[2024-12-28] MEDS: MINERAL OIL FLEET ENEMA 133 ML BOTTLE RC ONE (16:25)
[2024-12-28] MEDS: BISACODYL 10 MG SUPP.RECT RC ONE (16:25)
[2024-12-29] VITALS (26 sets, daily range): BP systolic 95–201; BP diastolic 59–146; TEMP 97.9–98.6; O2SAT 94–99
[2024-12-29 06:20] LABS: ABG BASE EXCESS -3.2 mmol/L (-2.0-3.0); ABG HCO3 22.9 mmol/L (21.0-28.0); ABG PCO2 45.5 mmHg (35.0-48.0); ABG PH 7.320 (7.350-7.450); ABG PO2 73.7 mmHg (83.0-108.0); ABG SITE LEFT RADIAL; ABG TOTAL HEMOGLOBIN 10.4 G/dL (13.5-17.5); AaDO2 93.6 mmHg; FIO2 80.0 %; PEEP,BG 5.0 cmH20; SET RATE, BG 22.0; VT, ABG 450 mL
[2024-12-29 06:58] LABS: PLATELET COUNT (AUTO) 244 K/uL (152-348); RED BLOOD CELL COUNT(AUTO) 3.11 MIL/uL (4.06-5.63); RED CELL DISTRIBUTION WIDTH 15.7 % (12.1-16.2); WHITE BLOOD COUNT (AUTO) 22.1 K/uL (3.6-10.2)
[2024-12-29 07:05] LABS: CREATININE 4.2 mg/dL (0.6-1.3); SODIUM SERUM 142 mmol/L (136-145)
[2024-12-29 07:26] LABS: UREA NITROGEN, BLOOD 113 mg/dL (7-18)
[2024-12-29] MEDS: FLEET ENEMA 133 ML BOTTLE RC ONE (07:31)
[2024-12-29] MEDS ORDERED: IV NORMAL SALINE 500 ML BAG IV ONE (09:15)
[2024-12-29] MEDS: IV NORMAL SALINE 500 ML IV ONE (09:31)
[2024-12-29 13:26] LABS: CREATININE 4.3 mg/dL (0.6-1.3); SODIUM SERUM 144 mmol/L (136-145)
[2024-12-29 13:29] LABS: UREA NITROGEN, BLOOD 115 mg/dL (7-18)
[2024-12-29] MEDS ORDERED: CEFEPIME HCL 2 GM in IV DEXTROSE 5% 100 ML IV SCH (17:00)
[2024-12-29] MEDS: CEFEPIME HCL 2 GM in IV DEXTROSE 5% 100 ML IV SCH (17:51)
[2024-12-29] MEDS ORDERED: CEFEPIME (MAXEPIME) 1 G in IV DEXTROSE 5% 50 ML IV SCH (18:00)
[2024-12-29] MEDS ORDERED: SULFAMETHOXAZOL/TRIMETHOPRI IV 20 ML in IV DEXTROSE 5% 500 ML IV SCH (18:00)
[2024-12-30] VITALS (24 sets, daily range): BP systolic 123–163; BP diastolic 23–142; TEMP 97.9–98.8; O2SAT 90–97
[2024-12-30 05:17] LABS: PLATELET COUNT (AUTO) 228 K/uL (152-348); RED BLOOD CELL COUNT(AUTO) 3.28 MIL/uL (4.06-5.63); RED CELL DISTRIBUTION WIDTH 15.7 % (12.1-16.2); WHITE BLOOD COUNT (AUTO) 22.2 K/uL (3.6-10.2)
[2024-12-30 05:26] LABS: CREATININE 4.6 mg/dL (0.6-1.3)
[2024-12-30 05:30] LABS: UREA NITROGEN, BLOOD 123 mg/dL (7-18)
[2024-12-30 05:32] LABS: SODIUM SERUM 146 mmol/L (136-145)
[2024-12-30 07:56] LABS: ABG BASE EXCESS -6.5 mmol/L (-2.0-3.0); ABG HCO3 20.6 mmol/L (21.0-28.0); ABG PCO2 47.4 mmHg (35.0-48.0); ABG PH 7.255 (7.350-7.450); ABG PO2 78.9 mmHg (83.0-108.0); ABG SITE LEFT RADIAL; ABG TOTAL HEMOGLOBIN 11.2 G/dL (13.5-17.5); AaDO2 93.7 mmHg; FIO2 70.0 %; PEEP,BG 5.0 cmH20; SET RATE, BG 22.0; VT, ABG 450 mL
[2024-12-30] MEDS: IV NORMAL SALINE 250 ML IV ONE (08:27)
[2024-12-30] MEDS ORDERED: DIATR MEGLU/DIATRIZOATE SODIUM 120 ML BOTTLE ONE (10:25)
[2024-12-30] MEDS ORDERED: DIATR MEGLU/DIATRIZOATE SODIUM 30 ML BOTTLE ONE (10:26)
[2024-12-30 12:05] LABS: *BILIRUBIN,URIN NEGATIVE (NEGATIVE); *BLOOD, URINE 2+ (NEGATIVE); *CLARITY,URINE CLEAR (CLEAR); *COLOR,URINE YELLOW (YELLOW); *KETONES,URINE NEGATIVE (NEGATIVE); *PROTEIN,URINE 1+ (NEGATIVE); *UROBILINOGEN,URINE 0.2 E.U./dl (NORMAL); LEUKOCYTE ESTERASE ,URINE NEGATIVE (NEGATIVE); NITRITE, URINE NEGATIVE (NEGATIVE); UGLUCOSE NEGATIVE (NEGATIVE)
[2024-12-30 12:19] LABS: SQUAMOUS EPITHELIAL CELL,UR FEW /HPF (NONE SEEN)
[2024-12-30 12:35] LABS: *CREATININE,URINE 68.7 mg/dL (30-125); *SODIUM RNDM,URINE 11.0 mmol/L (40-220); *URINE TOTAL PROTEIN RANDOM 86.2 mg/dL (<150/24HR)
[2024-12-30] MEDS: HEPARIN SODIUM,PORCINE 5,000 UNITS/ML VIAL SQ SCH (13:28)
[2024-12-31] VITALS (26 sets, daily range): BP systolic 99–198; BP diastolic 40–101; TEMP 97.7–98.2; O2SAT 92–95
[2024-12-31] MEDS: HEPARIN SODIUM,PORCINE 5,000 UNITS/ML VIAL SQ SCH (00:30)
[2024-12-31 05:04] LABS: PLATELET COUNT (AUTO) 236 K/uL (152-348); RED BLOOD CELL COUNT(AUTO) 3.40 MIL/uL (4.06-5.63); RED CELL DISTRIBUTION WIDTH 16.4 % (12.1-16.2); WHITE BLOOD COUNT (AUTO) 19.0 K/uL (3.6-10.2)
[2024-12-31 05:16] LABS: CREATININE 5.0 mg/dL (0.6-1.3); SODIUM SERUM 150 mmol/L (136-145)
[2024-12-31 05:25] LABS: UREA NITROGEN, BLOOD 131 mg/dL (7-18)
[2024-12-31 06:07] LABS: ABG BASE EXCESS -8.7 mmol/L (-2.0-3.0); ABG HCO3 18.6 mmol/L (21.0-28.0); ABG PCO2 46.1 mmHg (35.0-48.0); ABG PH 7.224 (7.350-7.450); ABG PO2 68.4 mmHg (83.0-108.0); ABG SITE LEFT RADIAL; ABG TOTAL HEMOGLOBIN 11.3 G/dL (13.5-17.5); AaDO2 90.1 mmHg; FIO2 90.0 %; PEEP,BG 5.0 cmH20; SET RATE, BG 26.0; VT, ABG 450 mL
[2024-12-31 14:13] LABS: ASPARTATE AMINOTRANSFERASE 16 U/L (15-37); CREATININE 5.0 mg/dL (0.6-1.3); SODIUM SERUM 147 mmol/L (136-145); TOTAL PROTEIN, SERUM 6.2 g/dL (6.4-8.2)
[2024-12-31 14:16] LABS: UREA NITROGEN, BLOOD 129 mg/dL (7-18)
[2024-12-31] MEDS: SODIUM BICARBONATE 8.4% 50 MEQ in IV D5W 1000ML 1,000 ML IV PRN (17:06)
[2024-12-31] MEDS: CULTURELLE CAPSULE GT SCH (20:26)
[2025-01-01] VITALS (25 sets, daily range): BP systolic 94–168; BP diastolic 38–117; TEMP 97.8–98.6; O2SAT 91–99
[2025-01-01 05:53] LABS: ABG BASE EXCESS -6.9 mmol/L (-2.0-3.0); ABG HCO3 19.1 mmol/L (21.0-28.0); ABG PCO2 40.2 mmHg (35.0-48.0); ABG PH 7.294 (7.350-7.450); ABG PO2 77.7 mmHg (83.0-108.0); ABG SITE LEFT RADIAL; ABG TOTAL HEMOGLOBIN 10.6 G/dL (13.5-17.5); AaDO2 94.2 mmHg; FIO2 90.0 %; PEEP,BG 5.0 cmH20; SET RATE, BG 26.0; VT, ABG 450 mL
[2025-01-01 05:59] LABS: PLATELET COUNT (AUTO) 184 K/uL (152-348); RED BLOOD CELL COUNT(AUTO) 3.02 MIL/uL (4.06-5.63); RED CELL DISTRIBUTION WIDTH 16.4 % (12.1-16.2); WHITE BLOOD COUNT (AUTO) 15.7 K/uL (3.6-10.2)
[2025-01-01 06:07] LABS: CREATININE 5.3 mg/dL (0.6-1.3); SODIUM SERUM 145 mmol/L (136-145)
[2025-01-01 06:17] LABS: UREA NITROGEN, BLOOD 145 mg/dL (7-18)
[2025-01-01] MEDS: MIDAZOLAM HCL 2 MG/2 ML VIAL IV PRN (10:38)
[2025-01-01] MEDS ORDERED: SEVELAMER CARBONATE 800 MG TABLET PO SCH (12:00)
[2025-01-01] MEDS: SEVELAMER CARBONATE 800 MG POWD.PACK PO SCH (13:16)
[2025-01-01 13:49] LABS: *SODIUM RNDM,URINE 15 mmol/L (40-220)
[2025-01-02] VITALS (26 sets, daily range): BP systolic 99–158; BP diastolic 50–98; TEMP 97.5–99.1; O2SAT 93–97
[2025-01-02 05:35] LABS: PLATELET COUNT (AUTO) 163 K/uL (152-348); RED BLOOD CELL COUNT(AUTO) 3.06 MIL/uL (4.06-5.63); RED CELL DISTRIBUTION WIDTH 16.3 % (12.1-16.2); WHITE BLOOD COUNT (AUTO) 15.1 K/uL (3.6-10.2)
[2025-01-02 05:48] LABS: ASPARTATE AMINOTRANSFERASE 14 U/L (15-37); CREATININE 5.6 mg/dL (0.6-1.3); SODIUM SERUM 143 mmol/L (136-145); TOTAL PROTEIN, SERUM 5.4 g/dL (6.4-8.2)
[2025-01-02 05:52] LABS: ABG BASE EXCESS -5.8 mmol/L (-2.0-3.0); ABG HCO3 20.6 mmol/L (21.0-28.0); ABG PCO2 44.3 mmHg (35.0-48.0); ABG PH 7.285 (7.350-7.450); ABG PO2 79.0 mmHg (83.0-108.0); ABG SITE LEFT RADIAL; ABG TOTAL HEMOGLOBIN 10.4 G/dL (13.5-17.5); AaDO2 94.3 mmHg; FIO2 70.0 %; PEEP,BG 5.0 cmH20; SET RATE, BG 26.0; VT, ABG 450 mL
[2025-01-02 06:09] LABS: UREA NITROGEN, BLOOD 141 mg/dL (7-18)
[2025-01-02] MEDS: CEFEPIME (MAXEPIME) 1 G in IV DEXTROSE 5% 50 ML IV SCH (18:24)
[2025-01-03] VITALS (61 sets, daily range): BP systolic 77–239; BP diastolic 40–110; TEMP 97.8–98.5; O2SAT 86–99
[2025-01-03] MEDS ORDERED: ACETAMINOPHEN 325 MG TABLET GT PRN (06:03)
[2025-01-03] MEDS ORDERED: MAGNESIUM HYDROXIDE 30 ML LIQUID UDC GT PRN (06:03)
[2025-01-03 06:10] LABS: PLATELET COUNT (AUTO) 141 K/uL (152-348); RED BLOOD CELL COUNT(AUTO) 3.21 MIL/uL (4.06-5.63); RED CELL DISTRIBUTION WIDTH 16.8 % (12.1-16.2); WHITE BLOOD COUNT (AUTO) 14.3 K/uL (3.6-10.2)
[2025-01-03 06:13] LABS: ABG BASE EXCESS -6.1 mmol/L (-2.0-3.0); ABG HCO3 22.1 mmol/L (21.0-28.0); ABG PCO2 57.3 mmHg (35.0-48.0); ABG PH 7.205 (7.350-7.450); ABG PO2 71.1 mmHg (83.0-108.0); ABG SITE LEFT RADIAL; ABG TOTAL HEMOGLOBIN 11.1 G/dL (13.5-17.5); AaDO2 90.4 mmHg; FIO2 70.0 %; PEEP,BG 5.0 cmH20; SET RATE, BG 26.0; VT, ABG 450 mL
[2025-01-03] MEDS: FLEET ENEMA 133 ML BOTTLE RC ONE (06:15)
[2025-01-03 06:26] LABS: ASPARTATE AMINOTRANSFERASE 14 U/L (15-37); CREATININE 5.9 mg/dL (0.6-1.3); SODIUM SERUM 141 mmol/L (136-145); TOTAL PROTEIN, SERUM 5.5 g/dL (6.4-8.2)
[2025-01-03 06:33] LABS: UREA NITROGEN, BLOOD 148 mg/dL (7-18)
[2025-01-03] MEDS: DOCUSATE SODIUM 100 MG/10 ML LIQUID UDC GT SCH (08:02)
[2025-01-03] MEDS ORDERED: NOREPINEPHRINE BITARTRATE 8 MG in IV DEXTROSE 5% 500 ML IV PRN (15:30)
[2025-01-03] MEDS: NOREPINEPHRINE BITARTRATE 32 MG in IV NORMAL SALINE 218 ML IV PRN (15:39)
[2025-01-03] MEDS: SEVELAMER CARBONATE 800 MG POWD.PACK GT SCH (17:58)
[2025-01-03] MEDS ORDERED: PHENYLEPHRINE IV 100 MG in IV NORMAL SALINE 240 ML IV PRN (19:30)
[2025-01-03] MEDS ORDERED: BUDESONIDE 0.5 MG/2 ML NEBU ONE (19:53)
[2025-01-04] VITALS (96 sets, daily range): BP systolic 90–207; BP diastolic 25–86; TEMP 98.6–100; O2SAT 92–98
[2025-01-04 05:09] LABS: PLATELET COUNT (AUTO) 147 K/uL (152-348); RED BLOOD CELL COUNT(AUTO) 3.08 MIL/uL (4.06-5.63); RED CELL DISTRIBUTION WIDTH 15.8 % (12.1-16.2); WHITE BLOOD COUNT (AUTO) 14.1 K/uL (3.6-10.2)
[2025-01-04 05:18] LABS: ASPARTATE AMINOTRANSFERASE 18 U/L (15-37); CREATININE 6.8 mg/dL (0.6-1.3); SODIUM SERUM 138 mmol/L (136-145); TOTAL PROTEIN, SERUM 5.2 g/dL (6.4-8.2)
[2025-01-04 05:37] LABS: UREA NITROGEN, BLOOD 157 mg/dL (7-18)
[2025-01-04 07:30] LABS: ABG BASE EXCESS -8.0 mmol/L (-2.0-3.0); ABG HCO3 20.1 mmol/L (21.0-28.0); ABG PCO2 52.1 mmHg (35.0-48.0); ABG PH 7.204 (7.350-7.450); ABG PO2 90.6 mmHg (83.0-108.0); ABG SITE LEFT RADIAL; ABG TOTAL HEMOGLOBIN 12.5 G/dL (13.5-17.5); AaDO2 95.0 mmHg; FIO2 80.0 %; PEEP,BG 5.0 cmH20; SET RATE, BG 26.0; VT, ABG 450 mL
[2025-01-05] VITALS (92 sets, daily range): BP systolic 75–167; BP diastolic 20–107; TEMP 97.7–99.4; O2SAT 91–98
[2025-01-05 05:02] LABS: PLATELET COUNT (AUTO) 141 K/uL (152-348); RED BLOOD CELL COUNT(AUTO) 3.14 MIL/uL (4.06-5.63); RED CELL DISTRIBUTION WIDTH 16.0 % (12.1-16.2); WHITE BLOOD COUNT (AUTO) 16.6 K/uL (3.6-10.2)
[2025-01-05 05:19] LABS: ASPARTATE AMINOTRANSFERASE 24 U/L (15-37); CREATININE 7.4 mg/dL (0.6-1.3); SODIUM SERUM 137 mmol/L (136-145); TOTAL PROTEIN, SERUM 5.6 g/dL (6.4-8.2)
[2025-01-05 05:33] LABS: UREA NITROGEN, BLOOD 175 mg/dL (7-18)
[2025-01-05 06:01] LABS: EOSINOPHILS % (MANUAL) 2 % (0-8); LYMPHOCYTES % (MANUAL) 13 % (20-40); METAMYELOCYTES % 1 % (0-1); MONOCYTES % (MANUAL) 4 % (2-10); NEUTROPHILS % (MANUAL) 80 % (42-75); PLATELET ESTIMATE DECREASED
[2025-01-05 06:02] LABS: NUCLEATED RED BLOOD CELLS 1.0 /100WBC
[2025-01-05] MEDS ORDERED: LABETALOL HCL 200 MG TABLET GT PRN (07:49)
[2025-01-05 07:54] LABS: ABG BASE EXCESS -8.6 mmol/L (-2.0-3.0); ABG HCO3 20.4 mmol/L (21.0-28.0); ABG PCO2 60.2 mmHg (35.0-48.0); ABG PH 7.147 (7.350-7.450); ABG PO2 79.6 mmHg (83.0-108.0); ABG SITE LEFT RADIAL; ABG TOTAL HEMOGLOBIN 9.7 G/dL (13.5-17.5); AaDO2 91.7 mmHg; FIO2 80.0 %; PEEP,BG 5.0 cmH20; SET RATE, BG 26.0; VT, ABG 450 mL
[2025-01-05] MEDS: SODIUM ZIRCONIUM CYCLOSILICATE 10 GM POWD.PACK PO ONE (15:12)
[2025-01-05] MEDS ORDERED: HOME MED MISCELLANEOUS PEG SCH (15:45)
[2025-01-05] MEDS: SODIUM BICARBONATE 8.4% 150 MEQ in IV D5W 1000ML 1,000 ML IV PRN (16:59)
[2025-01-06] VITALS (86 sets, daily range): BP systolic 85–167; BP diastolic 27–83; TEMP 97.8–98.8; O2SAT 90–97
[2025-01-06 05:08] LABS: PLATELET COUNT (AUTO) 157 K/uL (152-348); RED BLOOD CELL COUNT(AUTO) 3.02 MIL/uL (4.06-5.63); RED CELL DISTRIBUTION WIDTH 15.8 % (12.1-16.2); WHITE BLOOD COUNT (AUTO) 17.8 K/uL (3.6-10.2)
[2025-01-06 05:22] LABS: ASPARTATE AMINOTRANSFERASE 29 U/L (15-37); SODIUM SERUM 132 mmol/L (136-145); TOTAL PROTEIN, SERUM 5.2 g/dL (6.4-8.2)
[2025-01-06 05:27] LABS: UREA NITROGEN, BLOOD 170 mg/dL (7-18)
[2025-01-06 05:28] LABS: CREATININE 7.6 mg/dL (0.6-1.3)
[2025-01-06 05:38] LABS: EOSINOPHILS % (MANUAL) 1 % (0-8); LYMPHOCYTES % (MANUAL) 5 % (20-40); MONOCYTES % (MANUAL) 3 % (2-10); NEUTROPHILS % (MANUAL) 91 % (42-75); NUCLEATED RED BLOOD CELLS 2.0 /100WBC; PLATELET ESTIMATE ADEQUATE
[2025-01-06] MEDS: MINERAL OIL FLEET ENEMA 133 ML BOTTLE RC ONE (10:00)
[2025-01-06 10:14] LABS: ABG BASE EXCESS -7.7 mmol/L (-2.0-3.0); ABG HCO3 20.8 mmol/L (21.0-28.0); ABG PCO2 57.8 mmHg (35.0-48.0); ABG PH 7.175 (7.350-7.450); ABG PO2 74.0 mmHg (83.0-108.0); ABG SITE LEFT RADIAL; ABG TOTAL HEMOGLOBIN 10.5 G/dL (13.5-17.5); AaDO2 90.7 mmHg; FIO2 80.0 %; PEEP,BG 5.0 cmH20; SET RATE, BG 26.0; VT, ABG 450 mL
[2025-01-07] VITALS (94 sets, daily range): BP systolic 75–132; BP diastolic 45–88; TEMP 97.7–98.2; O2SAT 86–97
[2025-01-07 05:13] LABS: PLATELET COUNT (AUTO) 160 K/uL (152-348); RED BLOOD CELL COUNT(AUTO) 3.05 MIL/uL (4.06-5.63); RED CELL DISTRIBUTION WIDTH 16.5 % (12.1-16.2); WHITE BLOOD COUNT (AUTO) 17.9 K/uL (3.6-10.2)
[2025-01-07 05:25] LABS: ASPARTATE AMINOTRANSFERASE 35 U/L (15-37); SODIUM SERUM 132 mmol/L (136-145); TOTAL PROTEIN, SERUM 5.3 g/dL (6.4-8.2)
[2025-01-07 05:33] LABS: CREATININE 7.8 mg/dL (0.6-1.3); UREA NITROGEN, BLOOD 185 mg/dL (7-18)
[2025-01-07 05:56] LABS: ABG BASE EXCESS -9.1 mmol/L (-2.0-3.0); ABG HCO3 21.3 mmol/L (21.0-28.0); ABG PCO2 72.2 mmHg (35.0-48.0); ABG PH 7.088 (7.350-7.450); ABG PO2 87.2 mmHg (83.0-108.0); ABG SITE LEFT RADIAL; ABG TOTAL HEMOGLOBIN 10.9 G/dL (13.5-17.5); AaDO2 92.3 mmHg; FIO2 90.0 %; PEEP,BG 5.0 cmH20; SET RATE, BG 26.0; VT, ABG 450 mL
[2025-01-07 06:03] LABS: EOSINOPHILS % (MANUAL) 1 % (0-8); LYMPHOCYTES % (MANUAL) 2 % (20-40); MONOCYTES % (MANUAL) 3 % (2-10); NEUTROPHILS % (MANUAL) 94 % (42-75); NUCLEATED RED BLOOD CELLS 2.0 /100WBC; PLATELET ESTIMATE ADEQUATE
[2025-01-07 11:05] LABS: ABG BASE EXCESS -8.4 mmol/L (-2.0-3.0); ABG HCO3 21.2 mmol/L (21.0-28.0); ABG PCO2 65.1 mmHg (35.0-48.0); ABG PH 7.131 (7.350-7.450); ABG PO2 77.3 mmHg (83.0-108.0); ABG SITE LEFT RADIAL; ABG TOTAL HEMOGLOBIN 11.2 G/dL (13.5-17.5); AaDO2 90.6 mmHg; FIO2 90.0 %; PEEP,BG 5.0 cmH20; SET RATE, BG 22.0; VT, ABG 500 mL
[2025-01-07] MEDS: PHENYLEPHRINE IV 100 MG in IV NORMAL SALINE 240 ML IV PRN (14:39)
[2025-01-07] MEDS ORDERED: HOME MED MISCELLANEOUS PEG SCH (17:00)
[2025-01-08] VITALS (47 sets, daily range): BP systolic 77–105; BP diastolic 52–73; TEMP 98–99.1; O2SAT 85–90
[2025-01-08] MEDS ORDERED: NOREPINEPHRINE BITARTRATE 4 MG/4 ML VIAL IV ONE (04:32)
[2025-01-08 09:00] LABS: PLATELET COUNT (AUTO) 169 K/uL (152-348); RED BLOOD CELL COUNT(AUTO) 3.10 MIL/uL (4.06-5.63); RED CELL DISTRIBUTION WIDTH 17.2 % (12.1-16.2); WHITE BLOOD COUNT (AUTO) 14.2 K/uL (3.6-10.2)
[2025-01-08 09:10] LABS: ABG BASE EXCESS -15.7 mmol/L (-2.0-3.0); ABG HCO3 16.7 mmol/L (21.0-28.0); ABG PCO2 77.4 mmHg (35.0-48.0); ABG PH 6.952 (7.350-7.450); ABG PO2 47.5 mmHg (83.0-108.0); ABG SITE LEFT RADIAL; ABG TOTAL HEMOGLOBIN 11.0 G/dL (13.5-17.5); AaDO2 57.9 mmHg; FIO2 100.0 %; PEEP,BG 8.0 cmH20; SET RATE, BG 22.0; VT, ABG 460 mL
[2025-01-08 10:04] LABS: LYMPHOCYTES % (MANUAL) 7 % (20-40); MONOCYTES % (MANUAL) 7 % (2-10); NEUTROPHILS % (MANUAL) 83 % (42-75)
[2025-01-08 10:05] LABS: METAMYELOCYTES % 3 % (0-1); PLATELET ESTIMATE ADEQUATE
[2025-01-08 10:06] LABS: NUCLEATED RED BLOOD CELLS 17.0 /100WBC
[2025-01-08 10:44] LABS: ASPARTATE AMINOTRANSFERASE 2257 U/L (15-37); SODIUM SERUM 132 mmol/L (136-145); TOTAL PROTEIN, SERUM 5.0 g/dL (6.4-8.2)
[2025-01-08 10:45] LABS: CREATININE 8.5 mg/dL (0.6-1.3); UREA NITROGEN, BLOOD 183 mg/dL (7-18)
[2025-01-08] MEDS ORDERED: SODIUM ZIRCONIUM CYCLOSILICATE 10 GM POWD.PACK PO ONE (12:00)
== END 2025-01-08 12:00 | DRG 4 ==
LOC: ER 12:39 → ICU IN 18:06 → CCU 12-08 13:07 → TELE-TD3 12-25 19:40 → CCU 12-27 01:46
PROVIDERS: ADMIT Nurse Practitioner Acute Care; ATTEND Nurse Practitioner Acute Care
PROC: 0W9900Z Drainage of Right Pleural Cavity with Drainage Device, Open Approach (ICD-10-PCS; principal; 2024-12-07)
PROC: 5A1955Z Respiratory Ventilation, Greater than 96 Consecutive Hours (ICD-10-PCS; 2024-12-07)
PROC: 0BH17EZ Insertion of Endotracheal Airway into Trachea, Via Natural or Artificial Opening (ICD-10-PCS; 2024-12-07)
PROC: 0DH673Z Insertion of Infusion Device into Stomach, Via Natural or Artificial Opening (ICD-10-PCS; 2024-12-08)
PROC: 05HB33Z Insertion of Infusion Device into Right Basilic Vein, Percutaneous Approach (ICD-10-PCS; 2024-12-09)
PROC: 0WW930Z Revision of Drainage Device in Right Pleural Cavity, Percutaneous Approach (ICD-10-PCS; 2024-12-11)
PROC: 0BH17EZ Insertion of Endotracheal Airway into Trachea, Via Natural or Artificial Opening (ICD-10-PCS; 2024-12-18)
PROC: 5A1945Z Respiratory Ventilation, 24-96 Consecutive Hours (ICD-10-PCS; 2024-12-18)
PROC: 0B113F4 Bypass Trachea to Cutaneous with Tracheostomy Device, Percutaneous Approach (ICD-10-PCS; 2024-12-20)
PROC: 0DH63UZ Insertion of Feeding Device into Stomach, Percutaneous Approach (ICD-10-PCS; 2024-12-21)
PROC: 0B21XFZ Change Tracheostomy Device in Trachea, External Approach (ICD-10-PCS; 2025-01-01)
PROC: 5A12012 Performance of Cardiac Output, Single, Manual (ICD-10-PCS; 2025-01-08)
DX: T17.998A Other foreign object in respiratory tract, part unspecified causing other injury, initial encounter (principal); J93.0 Spontaneous tension pneumothorax; A41.9 Sepsis, unspecified organism; R65.21 Severe sepsis with septic shock; J69.0 Pneumonitis due to inhalation of food and vomit; G93.41 Metabolic encephalopathy; I21.A1 Myocardial infarction type 2; J80 Acute respiratory distress syndrome; N17.0 Acute kidney failure with tubular necrosis; J15.0 Pneumonia due to Klebsiella pneumoniae; J15.1 Pneumonia due to Pseudomonas; E43 Unspecified severe protein-calorie malnutrition; E87.0 Hyperosmolality and hypernatremia; D68.59 Other primary thrombophilia; E83.39 Other disorders of phosphorus metabolism; E83.41 Hypermagnesemia; J44.0 Chronic obstructive pulmonary disease with (acute) lower respiratory infection; J93.82 Other air leak; D69.6 Thrombocytopenia, unspecified; I46.9 Cardiac arrest, cause unspecified; F31.30 Bipolar disorder, current episode depressed, mild or moderate severity, unspecified; I27.21 Secondary pulmonary arterial hypertension; I71.40 Abdominal aortic aneurysm, without rupture, unspecified; I13.10 Hypertensive heart and chronic kidney disease without heart failure, with stage 1 through stage 4 chronic kidney disease, or unspecified chronic kidney disease; N18.30 Chronic kidney disease, stage 3 unspecified; I50.810 Right heart failure, unspecified; I35.8 Other nonrheumatic aortic valve disorders; D64.9 Anemia, unspecified; E66.9 Obesity, unspecified; K56.609 Unspecified intestinal obstruction, unspecified as to partial versus complete obstruction; E87.4 Mixed disorder of acid-base balance; I82.612 Acute embolism and thrombosis of superficial veins of left upper extremity; J44.1 Chronic obstructive pulmonary disease with (acute) exacerbation; J98.11 Atelectasis; E88.09 Other disorders of plasma-protein metabolism, not elsewhere classified; G90.89 Other disorders of autonomic nervous system; E78.5 Hyperlipidemia, unspecified; Z86.16 Personal history of COVID-19; W44.8XXA Other foreign body entering into or through a natural orifice, initial encounter; Y92.019 Unspecified place in single-family (private) house as the place of occurrence of the external cause; G47.33 Obstructive sleep apnea (adult) (pediatric); Z53.29 Procedure and treatment not carried out because of patient's decision for other reasons; D75.89 Other specified diseases of blood and blood-forming organs; J43.2 Centrilobular emphysema; Z91.148 Patient's other noncompliance with medication regimen for other reason; Z74.09 Other reduced mobility; E87.5 Hyperkalemia; K29.70 Gastritis, unspecified, without bleeding; N40.0 Benign prostatic hyperplasia without lower urinary tract symptoms; R13.10 Dysphagia, unspecified; N50.89 Other specified disorders of the male genital organs; Z88.1 Allergy status to other antibiotic agents; Z88.8 Allergy status to other drugs, medicaments and biological substances; E87.70 Fluid overload, unspecified
CPT/HCPCS: 36415; 36600; 43761; 70030-TC; 71045; 71250; 74018; 74250; 76700; 76770; 76775; 82803; 83550; 83605; 83735; 83970; 84100; 84153; 84155; 84165; 84300; 84443; 84478; 84484; 85018; 85025; 85730; 87040; 87070; 87077; 87086; 93307; 93880; 94002; 94003; 94640; 94760; 99082-TC; A4606; A4663; A6209; G0378; J0169; J0330; J0360; J0692; J1644; J1956; J2250; J2358; J2405; J2470; J2543; J2865; J2919; J3010; J3490; J3590; J7040; J7042; J7050; J7060; J7070; J7120; P9047; Q9963